=== PATIENT | female | born 1935 | race Caucasian/White ===

== ENCOUNTER 2019-07-31 07:59 | Outpatient (CLI) | payer MEDICARE, BC ==
--- NOTE | 2019-07-31 09:24 | ULT ---
Carotid arterial Doppler ultrasound: 07/31/2019 COMPARISON: None HISTORY: Carotid bruit, assess for carotid stenosis TECHNIQUE: Multiplanar grayscale sonographic imaging of the arterial structures of the neck obtained with color flow and spectral analysis FINDINGS: There is atherosclerotic calcification of the distal right CCA and the proximal right ECA. Normal arterial waveforms are noted within the carotid and vertebral system bilaterally. Bilateral vertebral arteries demonstrate antegrade blood flow. Peak systolic velocity (centimeters per second) is 84 within right common carotid artery, 98 within r ight internal carotid artery, and 78 within right external carotid artery. Peak systolic velocity (centimeters per second) is 91 within left common carotid artery, 99 within left internal carotid art north, and 62 within left external carotid artery. ICA/CCA ratio is 1.2 on the right and 1.1 on the left. IMPRESSION: No hemodynamically significant stenosis on the basis of sonographic velocity criteria.
== END 2019-07-31 08:00 | disposition home or self-care (01) ==
LOC: SCSULT 07:59
PROVIDERS: ATTEND Internal Medicine
DX: R09.89 Other specified symptoms and signs involving the circulatory and respiratory systems (principal)
CPT/HCPCS: 93880

== ENCOUNTER 2020-01-22 09:04 | Outpatient (CLI) | payer MEDICARE, BC ==
--- NOTE | 2020-01-22 15:29 | CT ---
CT ANGIOGRAM OF THE NECK: HISTORY: Left carotid bruit. COMPARISON: None. Correlation: Carotid ultrasound 07/21/2019. TECHNIQUE: CT angiogram of the neck is performed in the axial plane. Sagittal and coronal 3-dimensional reformat lisa images are submitted for interpretation. FINDINGS: Visualized brain parenchyma is unremarkable. Bilateral ocular lens implants are appropriately located . Both globes are intact. Retrobulbar fat is preserved. Symmetric attenuation of the optic nerves and ocular rectus muscles. Adequate aeration of the paranasal sinuses and mastoid air cells. Aerodigestive tract is patent. No mucosal abnormality. No obvious masses in the oral cavity. Limited evaluation due to dental amalgam artifact. Midline fatty raphae of the tongue is preserved. Epiglottis has a normal caliber. Preepiglottic fat is preserved. Symmetric attenuation of the paraspinal muscles. Symmetric attenuation of the parotid and symmetrical glands. Cervical spine vertebral body height is maintained. No fracture. Spondylolisthesis: 1.7 mm of anterolisthesis of C2 upon C3. 3.2 mm of anterolisthesis of C3 upon C4. 2.8 mm anterolisthesis of C4 upon C5. Moderate degenerative disc disease at C5-C6 and C6-C7. There are varying degrees of central canal phoebe nosis and foraminal narrowing on the basis of degenerative change. Significant left-sided facet hypertrophy at C2-C3, C3-C4, C4-C5. No acute abnormality in the visualized mediastinum and lung parenchyma. Bilateral apical pleural thic [place]. CT ANGIOGRAM: Aortic arch: There is atherosclerosis of the aorta. Right carotid: The right carotid artery origin, common carotid artery, carotid bifurcation and product development intern al carotid artery have appropriate enhancement and luminal diameter. Left carotid: Left carotid artery origin, common carotid artery, carotid bifurcation and internal car otid artery do not demonstrate any evidence of high-grade stenosis, based upon NASCET criteria. There is long segment mild stenosis involving the mid to distal left common carotid artery due to no ncalcified plaque. Bilateral cervical vertebral arteries are patent throughout their course in the neck. Dominant left v ertebral artery. Unremarkable right subclavian artery. There appears to be short segment moderate stenosis involving t he proximal left subclavian artery due to a combination of calcified and noncalcified plaque. IMPRESSION: 1. No evidence of hemodynamically significant stenosis in the cervical carotid arteries. No significa nt stenosis based upon NASCET criteria there is long segment soft plaque involving the mid to distal left common carotid artery. 2. 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 Transcribed Date/Time: 01/22/2020 3:38 PM
== END 2020-01-22 09:05 | disposition home or self-care (01) ==
LOC: SCSCT 09:04
PROVIDERS: ATTEND Internal Medicine Cardiovascular Disease
DX: R09.89 Other specified symptoms and signs involving the circulatory and respiratory systems (principal); I77.1 Stricture of artery
CPT/HCPCS: 70498; 82565

== ENCOUNTER 2020-07-18 08:57 | Outpatient (CLI) | payer MEDICARE, BC ==
--- NOTE | 2020-07-18 09:13 | RAD ---
CHEST 2 VIEWS: Date: 07/18/2020 HISTORY: Dyspnea. FINDINGS: Bilateral hyperinflation with increased linear and interstitial markings bilaterally, evidence for so me chronic change. Left-sided loop recorder. Mild biapical pleural thickening. IMPRESSION: Evidence for hyperinflation and chronic lung changes. No significant acute intrathoracic disease. Ath erosclerosis of aorta. POS: RRE
== END 2020-07-18 08:58 | disposition home or self-care (01) ==
LOC: BICRAD 08:57
PROVIDERS: ATTEND Internal Medicine Critical Care Medicine
DX: R06.00 Dyspnea, unspecified (principal); I70.0 Atherosclerosis of aorta; R91.8 Other nonspecific abnormal finding of lung field
CPT/HCPCS: 71046

== ENCOUNTER 2020-08-12 17:30 | Outpatient (CLI) | payer MEDICARE, BC | END 2020-08-12 17:31 | disposition home or self-care (01) | LOC: SLEEPLAB 17:30 | PROVIDERS: ATTEND Internal Medicine Critical Care Medicine | DX: G47.33 Obstructive sleep apnea (adult) (pediatric) (principal); G31.84 Mild cognitive impairment of uncertain or unknown etiology; R09.02 Hypoxemia; G47.00 Insomnia, unspecified | CPT/HCPCS: 95806 ==

== ENCOUNTER 2022-10-14 10:51 | Outpatient (CLI) | payer MEDICARE, BC | END 2022-10-14 10:52 | disposition home or self-care (01) | LOC: PET 10:51 | PROVIDERS: ATTEND Psychiatry & Neurology Neurology | DX: F03.90 Unspecified dementia, unspecified severity, without behavioral disturbance, psychotic disturbance, mood disturbance, and anxiety (principal); G25.0 Essential tremor | CPT/HCPCS: 70551; 78803; A9552 ==